=== PATIENT | male | born 2000 | race African-American/Black ===

== ENCOUNTER 2021-12-04 03:34 | Emergency (ER) | payer OTHER ==
[~2021-12-04] VITALS: Ht 180.3 cm; Wt 67.2 kg
[2021-12-04 03:45] VITALS: BP 120/66
[2021-12-04] MEDS ORDERED: TRAMADOL 50MG TABLET PO ONE (04:30)
[2021-12-04] MEDS ORDERED: KETOROLAC 60MG/2ML VIAL IM ONE (04:30)
[2021-12-04] MEDS ORDERED: CYCL5TAB MT (06:15)
[2021-12-04] MEDS ORDERED: IBUP-2029 MT (06:15)
== END 2021-12-04 06:37 | disposition home or self-care (01) ==
LOC: ER 03:58
DX: S39.012A Strain of muscle, fascia and tendon of lower back, initial encounter (principal); S96.811A Strain of other specified muscles and tendons at ankle and foot level, right foot, initial encounter; V49.49XA Driver injured in collision with other motor vehicles in traffic accident, initial encounter; Y93.89 Activity, other specified; Y92.488 Other paved roadways as the place of occurrence of the external cause; S62.39 Other fracture of other metacarpal bone; X58.XXXD Exposure to other specified factors, subsequent encounter
CPT/HCPCS: 73130; 73610; 96372; 99284; J1885

== ENCOUNTER 2023-12-03 09:21 | Emergency (ER) | payer MEDICAID, OTHER ==
[~2023-12-03] VITALS: Ht 182.9 cm; Wt 72.6 kg
[~2023-12-03 09:21] MED LIST: CYCL5TAB MT; IBUP-2029 MT
[2023-12-03 09:34] VITALS: O2SAT 95
[2023-12-03] MEDS ORDERED: CEPH500T MT (10:10)
[2023-12-03] MEDS ORDERED: PYR200 MT (10:15)
[2023-12-03 10:17] VITALS: BP 140/80; PULSE 74; RESP 16; TEMP 36.78072; O2SAT 95
== END 2023-12-03 10:07 | disposition home or self-care (01) ==
LOC: ER 09:31
DX: S41.111D Laceration without foreign body of right upper arm, subsequent encounter (principal); Z48.02 Encounter for removal of sutures; X58.XXXD Exposure to other specified factors, subsequent encounter
CPT/HCPCS: 99283; Z7610 ×2

== ENCOUNTER 2024-02-23 20:11 | Emergency (ER) | payer MEDICAID, OTHER ==
[~2024-02-23] VITALS: Ht 182.9 cm; Wt 70.3 kg
[~2024-02-23 20:11] MED LIST changes: +CEPH500T MT; -CYCL5TAB MT; +CYCL5TAB3 MT; +PYR200 MT
[2024-02-23 20:34] VITALS: O2SAT 99
[2024-02-23] MEDS ORDERED: CEFTRIAXONE SODIUM 500MG VIAL IM ONE (23:15)
[2024-02-24] MEDS ORDERED: DOXY100T2 MT (02:24)
[2024-02-24 02:47] VITALS: BP 108/59; PULSE 65; RESP 18; TEMP 36.72516; O2SAT 99
[2024-02-24] MEDS: CEFTRIAXONE SODIUM 500MG VIAL IM NR (02:48)
[2024-02-24 03:40] LABS: CLARITY URINE CLEAR (CLEAR); COLOR URINE YELLOW (YELLOW); GLUCOSE URINE NEGATIVE (NEGATIVE); KETONES URINE NEGATIVE (NEGATIVE); LEUKOCYTE ESTERASE URINE NEGATIVE (NEGATIVE); NITRITE URINE NEGATIVE (NEGATIVE); OCCULT BLOOD URINE NEGATIVE (NEGATIVE); PROTEIN URINE 1+ (NEGATIVE); SPECIFIC GRAVITY URINE 1.026 (1.005-1.030)
[2024-02-24 04:06] LABS: BACTERIA URINE NONE SEEN; RBC URINE 0-2 /hpf (0-2); SQUAMOUS EPITHELIAL CELL URINE NONE SEEN /lpf (RARE/1+); WBC URINE 0-2 /hpf (0-2)
[2024-02-25 19:11] LABS: CHLAMYDIA TRACHOMATIS NAA Negative (Negative); NEISSERIA GONORRHOEAE NAA Negative (Negative)
== END 2024-02-24 02:48 | disposition home or self-care (01) ==
LOC: ER 20:11
DX: Z20.2 Contact with and (suspected) exposure to infections with a predominantly sexual mode of transmission (principal)
CPT/HCPCS: 99283; 87491; 87591; 81003; 86592; 96372; J0696; Z7610